=== PATIENT | female | born 1985 | race Hispanic/Latino ===

== ENCOUNTER 2017-01-29 00:13 | Inpatient (IN) | payer SELFPAY ==
[2017-01-29 01:30] LABS: #Monocytes 0.9 thou/uL (0.11-0.59); #Neutrophils 10.4 thou/uL (1.40-6.50); %Basophils 0.2 % (0.0-1.0); %Eosinophils 0.1 % (0.0-10.0); %Monocytes 7.1 % (0.0-10.0); Hematocrit 32.4 % (36.0-47.0); Lactic Acid - Sepsis 1.3 mmol/L (0.5-2.2); Mean Platelet Volume 9.9 fL (7.4-10.4); Red Blood Cell (RBC) Count 4.13 mill/uL (4.20-5.40); White Blood Cell (WBC) Count 12.3 thou/uL (4.8-10.8)
[2017-01-29 01:42] LABS: ALT (SGPT) 9 U/L (8-55); AST (SGOT) 11 U/L (5-34); Alkaline Phosphatase 114 U/L (40-150); Anion Gap 14 mmol/L (10-20); BUN (Urea Nitrogen) 14 mg/dL (7.0-18.7); Bilirubin, Total 0.7 mg/dL (0.2-1.2); Calc. Creatinine Clearance 0 mL/min (70-130); Calcium 10.1 mg/dL (7.8-10.44); Carbon Dioxide 26 mmol/L (22-29); Chloride 95 mmol/L (98-107); Estimated GFR-MDRD Greater than 90; Globulin 4.2 g/dL (2.4-3.5); Protein, Total 7.9 g/dL (6.0-8.3)
[2017-01-29 01:58] LABS: Bilirubin Negative (Negative); Blood, Urine Trace (Negative); Glucose, Urine (Dipstick) >=1000 mg/dL (Negative); Ketone, Urine 40 mg/dL (Negative); Nitrite Negative (Negative); Protein, Urine (Dipstick) 100 mg/dL (Neg-Trace); Urobilinogen 0.2 mg/dL (0.2-1.0)
[2017-01-29 02:01] LABS: Bacteria/HPF 1+ HPF (None Seen); Hyaline Casts/LPF 0-3 HYALINE CAST LPF (0-3 Hyaline); Squamous Epithelial 0-3 HPF (0-3)
[2017-01-29] MEDS ORDERED: cefTRIAXone\\ROCEPHIN 2 GM VIAL ONE (03:30)
[2017-01-29] MEDS ORDERED: Ondansetron ODT 4 MG TAB SL PRN (04:49)
[2017-01-29] MEDS ORDERED: Ondansetron HCl/PF 4 MG/2 ML Vial IVP PRN ×2 (04:49→05:45)
[2017-01-29 04:54] VITALS: BMI 17.9
[2017-01-29] MEDS: Sodium Chloride 0.9% 1,000 ML IV SCH ×3 (05:15→21:33)
[2017-01-29] MEDS ORDERED: Dextrose 5% in Water 1,000 ML IV PRN (05:45)
[2017-01-29] MEDS ORDERED: Bisacodyl 5 MG TAB PO PRN (05:45)
[2017-01-29] MEDS ORDERED: Dextrose 50% Abboject 50 ML SYRINGE SLOW IVP PRN (05:45)
[2017-01-29] MEDS: HumaLOG 300 UNITS/3 ML VIAL SC PRN ×3 (06:15→17:50)
--- NOTE | 2017-01-29 06:34 | HP ---
PRIMARY CARE PHYSICIAN: Kaylynn Chiang MD CHIEF COMPLAINT: Abdominal pain. HISTORY OF PRESENT ILLNESS: Ms. Salcedo is a pleasant 31-year-old lady who was seen at [facility] on 01/29/2017. She reports that she had pain in the suprapubic region over the last 3 days. She describes it as sh fermin, 4/10, on and off, worse with urination. No known relieving factors, nonradiating, accompanied by nausea and fever. She also reports vomiting once. She came to the emergency room because of ongoing symptoms. REVIEW OF SYSTEMS: The following complete review of systems was negative, unless otherwise mentione d in the HPI or below: Constitutional: Weight loss or gain, sense of well-being, ability to conduct usual activities, exer cise tolerance. Skin/Breast: Rash, itching, changes in hair growth or loss, nail changes, breast lumps, tenderness, swelling, nipple discharge. Eyes: Vision, double vision, tearing, blind spots, pain. ENT/Mouth: Headaches (location, time of onset, duration, precipitating factors), vertigo, lighthead edness, injury. Vision, double vision, tearing, blind spots, pain, nose bleeding, colds, obstruction , discharge, dental difficulties, gingival bleeding, dentures, neck stiffness, pain, tenderness, mas ses in thyroid or other areas. Cardiovascular: Precordial pain, substernal distress, palpitations, syncope, dyspnea on exertion, o rthopnea, nocturnal paroxysmal dyspnea, edema, cyanosis, hypertension, heart murmurs, varicosities, phlebitis, claudication. Respiratory: Pain, shortness of breath, wheezing, stridor, cough, hemoptysis, fever or night sweats . Gastrointestinal: Poor appetite, dysphagia, indigestion, abdominal pain, heartburn, eructation, elli sea, vomiting, hematemesis, jaundice, constipation, or diarrhea, abnormal stools (soha-colored, mary alice y, bloody, greasy, foul smelling), flatulence, hemorrhoids, recent changes in bowel habits. Genitourinary: Urgency, frequency, dysuria, nocturia, hematuria, polyuria, oliguria, unusual (or ch che in) color of urine, stones, hesitancy, change in size of stream, dribbling, acute retention or incontinence, libido, potency. Musculoskeletal: Pain, swelling, redness or heat of muscles or joints, limitation, of motion, muscu lar weakness, atrophy, cramps. Neurologic/Psychiatric: Convulsions, paralyses, tremor, incoordination, paresthesias, difficulties with memory of speech, sensory or motor disturbances, or muscular coordination (ataxia, tremor), emo tional problems, anxiety, depression, previous psychiatric care, unusual perceptions, hallucinations . Allergy/Immunologic: Skin rash, anemia, bleeding tendency, polydipsia, polyuria, intolerance to hea t or cold. PAST MEDICAL HISTORY: Significant for diabetes mellitus, type 2, on insulin; dyslipidemia; and asth ma. It appears that she is out of her medications for diabetes and dyslipidemia. PAST SURGICAL HISTORY: Significant for cholecystectomy and section x2. PSYCHIATRIC HISTORY: None. SOCIAL HISTORY: The patient drinks alcohol occasionally. She denies tobacco use or recreational dr ug use. FAMILY HISTORY: Significant for diabetes mellitus in her mother. ALLERGIES: No known drug allergies. CURRENT MEDICATIONS: It appears that she is not taking her home medications currently. She reports being on Levemir and metformin. PHYSICAL EXAMINATION: GENERAL: On examination, Ms. Salcedo is awake and alert, not in acute distress. VITAL SIGNS: Blood pressure is 98/56, pulse is 93, she is breathing at rate of 16, and saturating 9 5% on room air. She is afebrile. In the emergency room, she had a pulse of 150, temperature is 102 .8 degrees Fahrenheit, blood pressure is 135/84, respiratory rate of 16, and oxygen saturation 97% o n room air. EYES: No scleral icterus. No conjunctival pallor. ENT: Dry mucosal membranes, no oropharyngeal erythema or exudates. NECK: Supple, nontender, normal range of movement, trachea is midline. RESPIRATORY: Accessory muscles of breathing are not active. Chest wall movements are symmetric dennis aterally. LUNGS: Clear to auscultation without wheeze, rhonchi, or crepitations. CARDIOVASCULAR: S1 and S2 are heard, regular. Peripheral pulses palpable. No carotid bruit, no pe ricardial rub. ABDOMEN: Soft, mild suprapubic tenderness present, no guarding or rigidity. Bowel sounds heard, no hepatomegaly, no splenomegaly, no costovertebral angle tenderness. NEUROLOGIC: Cranial nerves II through XII are intact. Deep tendon reflexes are 2+. MUSCULOSKELETAL: Power is 5/5 in all 4 extremities. Normal range of movement at all major extremit y joints. LYMPHATIC: No cervical lymphadenopathy. SKIN: No rashes or subcutaneous nodules. PSYCHIATRIC: Normal mood, normal affect, patient is oriented to person, place, and time. LABORATORY DATA AND IMAGING: Ms. Salcedo's labs and investigations were reviewed. I have reviewe d her electrocardiogram, which shows sinus tachycardia, no ST changes to suggest an acute coronary s yndrome. I also reviewed her chest x-ray, which does not show any pulmonary infiltrates. She also had a CT scan of the abdomen and pelvis, which shows mildly enlarged right kidney with multiple diff erent areas of hypoattenuation, it is in the right renal cortex, most compatible with right pyelonep hritis. She also has a likely right ovarian cyst. Laboratory investigation show leukocytosis with 12,300 white cells, of which 84.7% are neutrophils, microcytic anemia with hemoglobin 11.1, normal p latelet count. Hyponatremia with sodium 131, normal potassium, normal creatinine, unremarkable live r profile, blood glucose level of 390. Urinalysis, showing protein, glucose, ketones, trace blood, wbc, and bacteria. Urine test is negative. ASSESSMENT AND PLAN: Ms. Salcedo is a pleasant 31-year-old lady who was seen at [facility] on 01/29/2017. Her problem list includes: 1. Sepsis: Ms. Salcedo's presentation meets the criteria for sepsis, suspected source of infecti on in the urinary tract. She will be admitted to the hospital and treated with intravenous fluids a nd antibiotics. 2. Pyelonephritis: Suspected based on the CT scan findings. She does not have nitrite or leukocyt e esterase in the urine, but she does have white cells and bacteria. She does not have costovertebr al angle tenderness either. For now, we will continue her on intravenous ceftriaxone and await urin e cultures. 3. Diabetes mellitus. Start insulin sliding scale. Monitor Accu-Cheks, resume Levemir once home d oses are clarified. 4. Dyslipidemia: Clarify home medications and resume her home medications. 5. Asthma: Appears stable. 6. Hyponatremia: The etiology is unclear, recheck electrolytes. Many thanks for allowing me to participate in your patient's care. Please feel free to contact me w ith any questions or concerns. LEVEL OF RISK: High. LEVEL OF COMPLEXITY: High.
--- NOTE | 2017-01-29 07:50 | CT ---
PRELIMINARY REPORT/[facility]/EMERGENCY AFTER HOURS PROCEDURE: EXAM: CT Abdomen and Pelvis With Intravenous Contrast CLINICAL HISTORY: 31 years old, female; Pain; Abdominal pain; Localized; Lower; Prior surgery; Surgery type: Surgical history of cholecystectomy, surgical history of section; Patient HX: 31/f patient presents with complaint of nausea, vomiting, fever starting two days ago, worsening today. Also C/O suprapubic abd ominal pain. Denies diarrhea, constipation, sore throat, neck stiffness, vision changes, numbness, t ingling, weakness, or other acute process. TECHNIQUE: Axial computed tomography images of the abdomen and pelvis with intravenous contrast. Coronal reformatted images were created and reviewed. CONTRAST: 95 mL of isovue 370 administered intravenously. COMPARISON: No relevant prior studies available. FINDINGS: Lower thorax: No acute findings. ABDOMEN: Liver: Normal. Gallbladder and bile ducts: Gallbladder is surgically absent. Pancreas: Normal. Spleen: Normal. Adrenals: Normal. Kidneys and ureters: Mildly enlarged right kidney, with multiple ill-defined areas of hypoattenuatio n within the right renal cortex, most compatible with right pyelonephritis. Stomach and bowel: Normal. Appendix: Appendix is normal. PELVIS: Bladder: Normal. Reproductive: 1.6 cm peripherally hyperdense cystic structure within the right adnexa, likely right ovarian cyst. ABDOMEN and PELVIS: Intraperitoneal space: Normal. No free air. No significant fluid collection. Bones/joints: No acute fracture. No dislocation. Soft tissues: Normal. Vasculature: Minimal atherosclerotic disease of the abdominal aorta. No abdominal aortic aneurysm. Lymph nodes: Normal. IMPRESSION: 1. Mildly enlarged right kidney, with multiple ill-defined areas of hypoattenuation within the right renal cortex, most compatible with right pyelonephritis. 2. Incidental/non-acute findings are described above. Thank you for allowing us to participate in the care of your patient. Dictated and Authenticated by: Gilmer Garcia MD 01/29/2017 3:12 AM Central Time ([place] \T\ [place]) FINAL REPORT CT ABDOMEN AND PELVIS WITH ORAL AND IV CONTRAST: I agree with the preliminary report given by Dr. Gilmer Garcia of [facility]. POS: [facility]
--- NOTE | 2017-01-29 08:10 | RAD ---
PORTABLE CHEST: History: Fever. FINDINGS: Lungs are clear. Heart and mediastinum unremarkable. IMPRESSION: No acute findings. POS: [facility]
[2017-01-29] MEDS: Acetaminophen 325 MG TAB PO PRN ×3 (08:30→20:41)
[2017-01-29] MEDS: Enoxaparin Sodium 40 MG/0.4 ML SYRINGE SC SCH (08:31)
[2017-01-29] MEDS ORDERED: FLU VACC QS2017-18 36 mo. & older 0.5 ML SYRINGE IM ONE (09:00)
[2017-01-29] MEDS ORDERED: Iopamidol 370 76% 50 ML VIAL FS ONE (13:24)
[2017-01-29] MEDS ORDERED: ISOVUE-370 76%-LOCM 1 ML ONE (13:24)
[2017-01-30] MEDS ORDERED: cefTRIAXone\\ROCEPHIN 1 GM, Admixture Fee 1 EACH in Sodium Chloride 0.9% 100 ML IVPB SCH (03:00)
[2017-01-30] MEDS ORDERED: cefTRIAXone\\ROCEPHIN 1 GM in Sodium Chloride 0.9% 100 ML IVPB SCH (03:00)
[2017-01-30 05:22] LABS: #Basophils 0.1 thou/uL (0.0-0.2); #Eosinphils 0.1 thou/uL (0.0-0.7); #Lymphocytes 2.1 thou/uL (1.20-3.40); #Monocytes 1.8 thou/uL (0.11-0.59); #Neutrophils 7.8 thou/uL (1.40-6.50); %Basophils 0.5 % (0.0-1.0); %Eosinophils 1.1 % (0.0-10.0); %Lymphocytes 17.8 % (21.0-51.0); %Monocytes 14.9 % (0.0-10.0); Hematocrit 27.1 % (36.0-47.0); Mean Platelet Volume 9.4 fL (7.4-10.4); Red Blood Cell (RBC) Count 3.34 mill/uL (4.20-5.40); White Blood Cell (WBC) Count 11.8 thou/uL (4.8-10.8)
[2017-01-30 05:46] LABS: Anion Gap 8 mmol/L (10-20); BUN (Urea Nitrogen) 8 mg/dL (7.0-18.7); Calc. Creatinine Clearance 112 mL/min (70-130); Calcium 8.6 mg/dL (7.8-10.44); Carbon Dioxide 26 mmol/L (22-29); Chloride 104 mmol/L (98-107); Estimated GFR-MDRD Greater than 90
[2017-01-30] MEDS: Enoxaparin Sodium 40 MG/0.4 ML SYRINGE SC SCH (08:51)
[2017-01-30] MEDS ORDERED: Sodium Chloride 0.9% 1,000 ML IV SCH (10:45)
--- NOTE | 2017-01-30 12:00 | DIS ---
DATE OF ADMISSION: 01/29/2017 DATE OF DISCHARGE: 01/30/2017 DISCHARGE DIAGNOSES: 1. Escherichia coli urinary tract infection. 2. Escherichia coli pyelonephritis. 3. Sepsis. 4. Diabetes mellitus type 2. 5. Hyperlipidemia. 6. History of asthma. 7. Sinus tachycardia. CONSULTATIONS: None. PROCEDURES: None. HOSPITAL COURSE: Ms. Salcedo is a 31-year-old Latin-[place] female, who admitted early yesterday morning 01/29 for intractable nausea and vomiting. Evaluation found a urine compatible with urinar y tract infection, patient noted to have an elevated heart rate, slightly low blood pressure, fever, and normal lactic acid. CT scan of the abdomen and pelvis was performed that showed cortical leal es consistent with pyelonephritis and the Hospitalist service was called for admission. HOSPITAL COURSE: The patient was seen and examined by Dr. Perez and admitted to the hospital. She started IV Rocephin, IV fluids, urine culture was sent. Overnight, the patient remained stable. She had a fever of 102, but then normalized. Sugars became under control. Electrolytes normalized, renal function stayed normal, and today urine cultures mounika wing out E. coli. The patient's blood pressure has been stable in the low 100s. She has no orthostasis. Heart rate i nitially jumped up to the low one-teens to 120s; however, has gone back down to her baseline in the 90s. The patient was requesting to go home and she will follow up and take her medicines as prescribed. The patient was being discharged in stable condition. PHYSICAL EXAMINATION: The patient was seen and examined on the day of discharge. Discharge plan and disposition was discussed with the patient [id number] at the bedside. DISCHARGE MEDICATIONS: 1. Levofloxacin 500 mg p.o. daily for 12 more days to complete a total of 14 days. 2. Levemir 25 units subcu q.a.m. DISCHARGE CONDITION: Stable. DISPOSITION: The patient is being discharged to home via private vehicle. FOLLOWUP APPOINTMENTS: Primary care physician, Dr. Kaylynn Chiang within a week. The patient is i nstructed to return to the emergency department for uncontrolled fevers, intractable pain, or inabil ity to get her antibiotics.
[2017-01-30 12:06] VITALS: BP 102/72; TEMP 98.5
[2017-01-30 12:09] LABS: Hematocrit 30.9 % (36.0-47.0)
== END 2017-01-30 13:40 | disposition home or self-care (01) | DRG 872 ==
LOC: ERS 00:13 → 2NO 03:35
PROVIDERS: ADMIT Internal Medicine; ATTEND Internal Medicine
DX: A41.9 Sepsis, unspecified organism (principal); N10 Acute pyelonephritis; B96.20 Unspecified Escherichia coli [E. coli] as the cause of diseases classified elsewhere; E11.9 Type 2 diabetes mellitus without complications; E78.5 Hyperlipidemia, unspecified; N39.0 Urinary tract infection, site not specified; Z79.4 Long term (current) use of insulin; J45.909 Unspecified asthma, uncomplicated
CPT/HCPCS: 36415; 36416; 71010; 74177; 80048; 80053; 81003; 81015; 81025; 83605; 85025; 87040; 87077; 87081; 87086; 87186; 87430; 90471; 90682; 93005; 96361; 96365; 96375; G0008; J0696; J1650; J3370; J7050; Q2036